=== PATIENT | female | born 1990 | race American Indian/Alaskan Native ===

== ENCOUNTER 2017-01-08 10:16 | Emergency (ER) | payer SELFPAY ==
[2017-01-08] MEDS ORDERED: TYLENOL PO ONE (10:34)
[2017-01-08 10:37] VITALS: BP 115/78
--- NOTE | 2017-01-08 10:37 | Emergency Department Report ---
Chief Complaint: Abdominal Pain Stated Complaint: ABD PAIN Time Seen by Provider: 01/08/17 10:32 - HPI History of Present Illness: PT c/o 2 days of left sided abd pain. pt denies hx of same. - ROS Review of Systems: + chills - last night + fever - in triage + abd pain + nausea - vomiting + dysuria + back pain - Exam Physical Exam: PT looks well, non toxic but is febrile abd soft, LLQ ttp no cva tenderness niranjan MSE screening note: Focused history and physical exam performed. Due to findings the following was ordered: labs, Tylenol ED Disposition for MSE Condition: Stable
[2017-01-08 11:32] LABS: Basophils % (Auto) 0.1 % (0.0-1.8); Hematocrit 41.9 % (30.3-42.9); Hemoglobin 13.9 gm/dl (10.1-14.3); Mean Corpuscular HGB Conc 33 % (30-34); Mean Corpuscular Hemoglobin 29 pg (28-32); Mean Corpuscular Volume 86 fl (79-97); Platelet Count 172 K/mm3 (140-440); Red Blood Count 4.89 M/mm3 (3.65-5.03); Red Cell Distribution Width 13.7 % (13.2-15.2); White Blood Count 13.3 K/mm3 (4.5-11.0)
[2017-01-08 11:47] LABS: Alanine Aminotransferase 10 units/L (7-56); Albumin 4.3 g/dL (3.9-5); Albumin/Globulin Ratio 1.1 %; Alkaline Phosphatase 45 units/L (35-129); Anion Gap 19 mmol/L; Blood Urea Nitrogen 10 mg/dL (7-17); Calcium 9.8 mg/dL (8.4-10.2); Carbon Dioxide 25 mmol/L (22-30); Chloride 98.2 mmol/L (98-107); Glucose 101 mg/dL (65-100); Potassium 4.3 mmol/L (3.6-5.0); Sodium 138 mmol/L (137-145); Total Protein 8.3 g/dL (6.3-8.2)
[2017-01-08 11:52] LABS: Bacteria,Urine 1+ /HPF (Negative); Bilirubin,Urine NEG (Negative); Blood,Urine MOD (Negative); Ketones,Urine 20 mg/dL (Negative); Leukocyte Esterase,Urine LG (Negative); Nitrite,Urine NEG (Negative); Urobilinogen,Urine < 2.0 mg/dL (<2.0)
[2017-01-08 11:54] LABS: WBC,Urine > 182.0 /HPF (0.0-6.0)
== END 2017-01-08 17:55 | disposition left against medical advice (07) ==
LOC: ED 10:16
DX: R10.9 Unspecified abdominal pain (principal); Z53.21 Procedure and treatment not carried out due to patient leaving prior to being seen by health care provider
CPT/HCPCS: 36415; 80053; 81001; 81025; 83690; 85025; 87076; 87086; 87186